=== PATIENT | female | born 1965 | race Caucasian/White ===

== ENCOUNTER 2016-11-29 15:42 | Observation (INO) | payer OTHER ==
[2016-11-29 16:48] LABS: HEMOGLOBIN 13.5 gm/dl (12.3-15.3); RED BLOOD COUNT 4.91 M/UL (4.00-5.10); WHITE BLOOD COUNT 8.8 K/UL (4.5-11.0)
[2016-11-29 17:11] LABS: BUN/CREATININE RATIO 40 (0-10)
[2016-11-30 05:11] LABS: HEMOGLOBIN 13.5 gm/dl (12.3-15.3); RED BLOOD COUNT 4.9 M/UL (4.00-5.10); WHITE BLOOD COUNT 6.8 K/UL (4.5-11.0)
[2016-11-30 05:51] LABS: BUN/CREATININE RATIO 33 (0-10)
[2016-11-30] MEDS ORDERED: ASPIRIN EC81 MG PO (11:04)
[2016-11-30] MEDS ORDERED: FLONASE 0.05% N16 GM (11:04)
[2016-11-30] MEDS ORDERED: HYDROCHLOROTHIA25 MG PO (11:05)
[2016-11-30] MEDS ORDERED: SYNTHROID75 MCG PO (11:05)
[2016-11-30] MEDS ORDERED: LOPID600 MG PO (11:05)
[2016-11-30] MEDS ORDERED: CLARITIN10 MG PO (11:06)
[2016-11-30] MEDS ORDERED: LEXAPRO5 MG PO (11:06)
[2016-11-30] MEDS ORDERED: VOLTAREN EC 7575 MG PO (11:06)
== END 2016-11-30 11:41 | disposition home or self-care (01) ==
LOC: ER1 15:42 → ZEROF 17:50 → MED SURG 4 20:00
PROVIDERS: Physician Assistant; ADMIT Emergency Medicine
DX: R07.89 Other chest pain (principal); I10 Essential (primary) hypertension; E78.5 Hyperlipidemia, unspecified; E11.9 Type 2 diabetes mellitus without complications; E03.9 Hypothyroidism, unspecified; E87.6 Hypokalemia; E66.9 Obesity, unspecified; M19.90 Unspecified osteoarthritis, unspecified site; F17.210 Nicotine dependence, cigarettes, uncomplicated; Z85.3 Personal history of malignant neoplasm of breast; Z90.13 Acquired absence of bilateral breasts and nipples; Z87.19 Personal history of other diseases of the digestive system; Z79.82 Long term (current) use of aspirin; Z79.899 Other long term (current) drug therapy; Z90.49 Acquired absence of other specified parts of digestive tract; Z88.6 Allergy status to analgesic agent; Z82.49 Family history of ischemic heart disease and other diseases of the circulatory system; Z83.3 Family history of diabetes mellitus; Z80.1 Family history of malignant neoplasm of trachea, bronchus and lung
CPT/HCPCS: ECHO; 36415; 71010; 80048; 80053; 80061; 82550; 82553; 82962; 83036; 83735; 83874; 84439; 84443; 84484; 85025; 85027; 93005; 93306; 99285; G0378